=== PATIENT | male | born 1980 | race Caucasian/White ===

== ENCOUNTER 2020-08-15 18:34 | Emergency (ER) | payer MEDICAID, MEDICARE ==
[~2020-08-15] VITALS: Ht 165.1 cm; Wt 81.6 kg
--- NOTE | 2020-08-15 18:34 | NUR ---
PT BIB SELF C/O ABDOMINAL PAIN "I SWALLOWED A AYALA 6 MONTHS AGO" PT IS AAOX4, NOT IN RESPIRATORY DISTRESS, V/S STABLE, KEPT RESTED AND COMFORTABLE. WILL CONTINUE TO MONITOR.
--- NOTE | 2020-08-15 18:51 | NUR ---
SEEN AND EXAMINED BY LUPE ARIAS
--- NOTE | 2020-08-15 18:55 | NUR ---
ER PHLEB AT BEDSIDE FOR BLOOD DRAW.
[2020-08-15 19:00] LABS: BASOPHILS % (AUTO) 0.6 % (0.0-2.0); EOSINOPHILS % (AUTO) 3.2 % (0.0-6.0); HEMATOCRIT 36 % (39-51); HEMOGLOBIN 11.6 g/dL (13.5-17.5); LYMPHOCYTES # (AUTO) 2.4 K/uL (0.8-4.8); LYMPHOCYTES % (AUTO) 29.8 % (20.0-44.0); MEAN CORPUSCULAR HGB CONC 33 g/dl (31.0-36.0); MEAN CORPUSCULAR VOLUME 81 fL (80-96); MONOCYTES # (AUTO) 0.7 K/uL (0.1-1.30); MONOCYTES % (AUTO) 8.7 % (2.0-12.0); NEUTROPHILS # (AUTO) 4.6 K/uL (1.8-8.9); NEUTROPHILS % (AUTO) 57.7 % (43.0-81.0); PLATELET COUNT (AUTO) 370 K/uL (150-450); RED BLOOD CELL COUNT(AUTO) 4.37 MIL/uL (4.5-6.0)
[2020-08-15 19:07] LABS: CALCIUM, SERUM 8.4 mg/dL (8.5-10.1); CREATININE 0.8 mg/dL (0.6-1.3); POTASSIUM 3.6 mmol/L (3.5-5.1)
[2020-08-15 19:13] LABS: ALBUMIN 3.4 g/dL (3.4-5.0); BILIRUBIN,DIRECT 0.1 mg/dL (0.0-0.2); BILIRUBIN,TOTAL 0.2 mg/dL (0.2-1.0); TOTAL PROTEIN, SERUM 7.2 g/dL (6.4-8.2)
[2020-08-15] MEDS ORDERED: NALO4SPR NS (19:54)
[2020-08-15] MEDS ORDERED: ACET-2605 PO (19:54)
--- NOTE | 2020-08-15 19:59 | NUR ---
Patient discharged to home in stable condition. Written and verbal after care instructions given. Patient verbalizes understanding of instruction. Pt ambulated out of ED. VSS.
[2020-08-15 20:00] VITALS: BP 134/76
== END 2020-08-15 20:01 | disposition home or self-care (01) ==
LOC: ER 18:40
DX: R10.12 Left upper quadrant pain (principal); D64.9 Anemia, unspecified; F32.9 Major depressive disorder, single episode, unspecified; F41.9 Anxiety disorder, unspecified; Z98.890 Other specified postprocedural states
CPT/HCPCS: 36415; 74022-TC; 80048-TC; 80076-TC; 83690-TC; 85025-TC